=== PATIENT | female | born 1995 | race Hispanic/Latino ===

== ENCOUNTER 2017-01-27 20:01 | Emergency (ER) | payer OTHER ==
[~2017-01-27] VITALS: Ht 144.8 cm; Wt 76.8 kg
[2017-01-27 20:14] VITALS: BP 106/71; PULSE 85; RESP 16; O2SAT 98
--- NOTE | 2017-01-27 21:29 | ED.REPORT ---
HPI-General Illness Date of Service Jan 27, 2017 ED Provider: Dr. Steven Hart MD A 22 year old, 17 week female presents to the ED complaining of right 5th toe pain secondary to an injury that occurred 1830 this evening. Patient reportedly hit her toe on the side of the kitchen counter. She rates her current pain as a 6/10 and the pain is exacerbated by movement. The toe has become increasingly swollen since onset. She is able to bear weight but reports severe pain. The pain does not radiate to her ankle or leg. Patient has not taken any OTC medications for the pain. She denies any head injury, LOC, nausea , vomiting, fever, chills, numbness/tingling in the foot, chest pain, SOB, abdominal pain, constipation or diarrhea. Nursing Notes Stated Complaint: SWOLLEN TOE Chief Complaint: Extremity Trauma Nursing Notes Reviewed: Yes Allergies: Coded Allergies: No Known Allergies (Unverified Allergy, Unknown, 01/27/17) General Time Seen by MD: 21:28 Chief Complaint Other (5th toe pain) Hx Obtained From: Patient Arrived By: Walk-in Sudden in Onset?: Yes Onset Occurred: 1 - 4 hours ago Symptom Duration: Since onset Caused by: Accidental Location: : Foot right Quality: Painful, Sharp Radiation: : Does not radiate Severity: Current: Pain level 7 out of 10 Severity: Maximum: Pain level 7 out of 10 Associated with: Reports: Pain on walking, Denies: Abdominal pain, Chest pain, Dizziness, Fever, Nausea, Numb extremities, Shortness of breath, Vomiting, Weakness Pertinent Negative: Pt denies other symptoms Exacerbated by: Moving affected area Recent Healthcare: No recent doctor visit, No recent hospitalization Past Medical History Past Medical History 17 weeks Past Surgical History None reported Smoking History Unknown if Ever Smoker Social History Other Social History: Good social support, Local resident Ambulatory Status Independent Review of Systems Full Review of Systems Constitutional: Denies: Chills, Fever Respiratory: Denies: Shortness of breath Cardiovascular: Denies: Chest pain GI: Denies: Abdominal pain, Constipation, Diarrhea, Nausea, Vomiting Female: Reports: (17 weeks ) Musculoskeletal: Reports: Joint pain (5th toe pain), Joint swelling (5th toe swelling), Denies: Extremity pain, Extremity swelling Neurologic: Reports: Headache, Denies: Numbness, Weakness Complete sys rev & neg: except as marked. Physical Exam Nursing note and vitals reviewed. Constitutional: Well-developed, well-nourished. Not diaphoretic. Head: Normocephalic and atraumatic. Mouth/Throat: Oropharynx is clear and moist. No oropharyngeal exudate. Eyes: EOM are normal. Pupils are equal, round, and reactive to light. Neck: Supple, no tracheal deviation. Cardiovascular: Normal rate, regular rhythm. Equal and intact distal pulses throughout. Pulmonary/Chest: Effort normal and breath sounds normal. No respiratory distress. Abdominal: Soft. No distension. Musculoskeletal: Range of motion grossly intact, moving all extremities. Tenderness to the small toe. No tenderness over the right knee. No ankle tenderness. No proximal 2nd -5th metatarsal tenderness. No edema appreciated. Neurological: AOx3. Grossly nonfocal exam. Strength and sensation intact and equal to bilateral upper and lower extremities. Skin: Warm and dry, no rashes or pallor appreciated. Psychiatric: Appropriate mood and affect. Behavior appears normal. Vital Signs Vital Signs Date Time Temp Pulse Resp B/P Pulse Ox O2 Delivery O2 Flow Rate FiO2 01/27/17 20:14 36.7 85 16 106/71 98 Room Air Interpretation & Diagnostics X-Ray Interpretation Xray Interpretation: IMPRESSION: No obvious acute evidence of fracture X-Ray Ordered: Foot right Interpretation / Wet Read by: Wet read ED physician Re-Eval/Medical Decision Med Decision/Clinical Course 22-year-old female presenting to the ED for evaluation of right small toe pain. She is currently . Neurovascularly intact. No proximal first and second metatarsal tenderness, no fifth metatarsal tenderness. Discussed performing an x-ray and patient was agreeable to this. X-ray negative for acute fracture. Plan discharge home with careful return precautions, PCP follow -up. Time of Eval: 22:50 Patient Status: Condition improved Re-Evaluation/Progress Note: Patient is re-evaluated. All questions about the treatment plan are addressed. She agrees to follow up with her PCP for further evaluation this week. Patient is agreeable to discharge at this time. Counseled Regarding: Diagnosis, Need for follow-up, When/why to return to ED Discharge & Departure Primary Impression: Toe injury Encounter type: initial encounter Laterality: right Qualified Code: S99.921A - Unspecified injury of right foot, initial encounter Disposition: Home Discharge Condition All VS Reviewed: Yes Condition: Improved Patient Instructions: Foot Contusion (ED) Additional Instructions: Thank you for trusting us with your care this evening. Your emergency department examination and X-ray are reassuring that there is no fracture. Take 1-2 Tylenol every 6 hours as needed for pain. Please schedule a follow up appointment with your primary care physician and OB/ [employer] [facility] in the next week for a recheck. Please return to the emergency department for any new or worsening symptoms including any worsening pain, swelling, redness or any numbness/weakness in the foot. Referrals: NOPCP (PCP) [facility] Scribe Attestation Portions of this note were transcribed by Seven De La Torre. I, Dr. Hart personally performed the history, physical exam and medical decision-making; I reviewed and confirmed the accuracy of the information in the transcribed note. Signed by: Angelique Guy, 01/27/17 [id number]. Steven Hart MD Jan 27, 2017 21:29 SEVEN DE LA TORRE Jan 27, 2017 21:53
--- NOTE | 2017-01-28 11:16 | DRSVH ---
PROCEDURE: X-RAY TOESS, TWO VIEWS INDICATIONS: pain swelling TECHNIQUE: 3 views of the fourth and fifth toe(s) acquired. COMPARISON: None. FINDINGS: Bones: No definite fractures or dislocations. There is subtle cortical lucency at the base of the f ifth proximal phalanx, probably a new vessel. No suspicious bony lesions. Soft tissues: No suspicious soft tissue densities. Soft tissue swelling of the fifth toe. IMPRESSION: No definite fractures or dislocations. If clinical symptoms persist or clinical suspicio n for pathology is high, a repeat examination in 7-10 days is suggested for further evaluation. Dictated by: Francois Gordon M.D. on 01/28/2017 at 11:10 Approved by: Francois Gordon M.D. on 01/28/2017 at 11:14
== END 2017-01-27 23:14 | disposition home or self-care (01) ==
LOC: SED 20:01
DX: O9A.212 Injury, poisoning and certain other consequences of external causes complicating pregnancy, second trimester (principal); S99.921A Unspecified injury of right foot, initial encounter; W22.8XXA Striking against or struck by other objects, initial encounter; Y92.000 Kitchen of unspecified non-institutional (private) residence as the place of occurrence of the external cause; Y93.89 Activity, other specified; Y99.8 Other external cause status; Z3A.17 17 weeks gestation of pregnancy

== ENCOUNTER 2017-02-19 14:24 | Emergency (ER) | payer OTHER ==
[~2017-02-19] VITALS: Ht 144.8 cm; Wt 77.1 kg
[2017-02-19 14:30] VITALS: BP 90/63; PULSE 77; RESP 15; O2SAT 99
[2017-02-19] MEDS ORDERED: LidocaineVisc 2%:Antacid 1:1 10 mL Syringe PO ONE (14:50)
--- NOTE | 2017-02-19 14:58 | ED.REPORT ---
HPI-Chest Pain 40 and Over Date of Service Feb 19, 2017 ED Provider: Akil Conti DO A 22 year old, 21 week female presents to the ED epigastric discomfort/ chest pressure that began at 1300 this afternoon. Her pain began after eating a spicy lunch (pasole) and is associated with mild SOB. She has also noticed similar symptoms in the morning when waking. She endorsees recent flatulence and nausea that was relieved by drinking water. The patient has experienced a similar episode in the past that was not associated with eating. Her discomfort is relieved by sitting. movement has been regular, according to the patient. She denies any recent vomiting, fever, chills, cough or lower extremity edema. She currently takes vitamins. Nursing Notes Stated Complaint: SOB, PRESSURE IN CHEST Chief Complaint: Chest Pain-Non Cardiac Nature Nursing Notes Reviewed: Yes Allergies: Coded Allergies: No Known Allergies (Verified Allergy, Unknown, 02/19/17) Scheduled Ranitidine (Ranitidine) 150 Mg Capsule 150 MG PO HS General Time Seen by MD: 14:36 Chief Complaint Chest pressure Hx Obtained From: Patient Arrived By: Walk-in Sudden in Onset?: No Onset Occurred: 1 - 4 hours ago Symptom Duration: Since onset Location: : Chest left: Chest right: Epigastric Quality: Pressure Radiation: : Does not radiate Migration/Movement: Reports: None Severity: Current: Mild Severity: Maximum: Moderate Associated with: Reports: Nausea, Shortness of Breath, Vomiting, Denies: Cough, non-productive, Fever Pertinent Negative: Pt denies other symptoms Relieved by: Rest Recent Healthcare: No recent doctor visit, No recent hospitalization Risk Factors )( CAD Risk Stratification Risk factors reviewed )( TAD Risk Stratification Risk factors reviewed )( PE Risk Stratification Risk factors reviewed Past Medical History Past Medical History 21 weeks Past Surgical History None reported Smoking History Unknown if Ever Smoker Social History Other Social History: Good social support, Local resident Ambulatory Status Independent Review of Systems + Flatulence Constitutional: Denies: Chills, Fever Respiratory: Reports: Shortness of breath Cardiovascular: Reports: Chest pain GI: Reports: Nausea, Denies: Vomiting Complete sys rev & neg: except as marked. Physical Exam Initial Vital Signs Vital Signs (First) Date Time Temp Pulse Resp B/P Pulse Ox O2 Delivery O2 Flow Rate FiO2 02/19/17 14:30 36.7 77 15 90/63 99 Room Air Initial VS: Reviewed Head / Eyes: Atraumatic, Normocephalic, PERRL Neck: Supple, Non-tender, Full range of motion Extremities: Vascular intact, Neuro intact, No swelling, No tenderness Skin: Warm, Dry, No cyanosis Neurologic: Alert, Oriented, Nonfocal Psychiatric: Mood/affect normal, Behavior normal, Normal thought content General/Constitutional: Awake, Alert, No acute distress, Well appearing, Well developed Appearance / Presentation: Positive: Obese Respiratory / Chest: Atraumatic, Breath sounds NL, Breath sounds = bilat, No respiratory distress Cardiovascular: Heart rate NL, Regular rhythm, Heart sounds NL Abdomen: Atraumatic, Soft Tenderness/Guarding/Rebound: Positive: Tender epigastric (Reproduces discomfort ) ABDOMEN: Gravid uterus Interpretation & Diagnostics Lab Results Interpretation Test 02/19/17 15:31 Hold Urine Received (Received) ECG Interpretation ECG Interpretation: Sinus rhythm Rate 80 Time: 15:21 Interpreted by: ED physician Re-Eval/Medical Decision Med Decision/Clinical Course On exam this patient has epigastric tenderness which resolved after GI cocktail. Her shortness of breath and chest pressure were exacerbated with epigastric palpation and significantly improved after GI cocktail. EKG was reassuring. Her vital signs are reassuring as well. After extensive discussion with her and her fianc, she declines any further diagnostic evaluation. We talked at length about risks and potential disease processes, that may be further elucidated with lab and imaging studies. Again the patient declines. She is very clearly able to make her own decisions and has a mental capacity to do this. She prefers to go home and follow-up with her regular doctor as her symptoms are mild. Ranitidine as prescribed. Return and follow-up precautions given. Time of Eval: 15:31 Patient Status: Condition improved Re-Evaluation/Progress Note: Symptoms have significantly improved after GI cocktail. Shared decision making occurred with the patient. Discussed results and intended plan with patient and her fiance. Discussed potential emergent causes for concern including PE, SD and other acute conditions. Offered lab tests and explained potential need for CT. Patient declines any further evaluation at this time. Currently requesting a prescription for antacid and agrees to follow up with PCP or return for worsening conditions. Time of Eval: 15:40 Re-Evaluation/Progress Note: heart tones - 140 Counseled Regarding: Diagnosis, Need for follow-up, When/why to return to ED Discharge & Departure Primary Impression: Epigastric discomfort Disposition: Home Discharge Condition All VS Reviewed: Yes Condition: Improved Patient Instructions: Acute Nausea and Vomiting (ED), Epigastric Pain (ED), (ED) Additional Instructions: Thank you for trusting us with your care this afternoon. Your emergency department evaluation today including examination and EKG are reassuring that there is no dangerous cause for concern at this time. Your heart tones are regular and reassuring. Please take Ranitidine as directed for discomfort. Please eat small and bland meals to prevent any further discomfort. You decline any further evaluation today so I highly recommend that you schedule a follow-up appointment with your primary care physician and your OB in the morning for a recheck. Please return to the emergency department for any new or worsening conditions including any fevers, chills, nausea, vomiting, worsening abdominal pain, chest pain, shortness or breath, lightheadedness or weakness. Referrals: NOPCP (PCP) Scribe Attestation Portions of this note were transcribed by Seven De La Torre. I, Dr. Akil Lane personally performed the history, physical exam and medical decision- making; I reviewed and confirmed the accuracy of the information in the transcribed note. Akil Conti DO Feb 19, 2017 14:58 SEVEN DE LA TORRE Feb 19, 2017 15:08
--- NOTE | 2017-02-19 15:43 | NUR ---
FHT's via doppler 140's, no decels heard, FM felt
[2017-02-19] MEDS ORDERED: RANI150C4 PO (15:50)
[2017-02-19 16:09] VITALS: BP 146/88; PULSE 77; RESP 15; O2SAT 99
== END 2017-02-19 16:11 | disposition home or self-care (01) ==
LOC: SED 14:24
DX: O99.89 Other specified diseases and conditions complicating pregnancy, childbirth and the puerperium (principal); R10.13 Epigastric pain; R06.02 Shortness of breath; Z3A.21 21 weeks gestation of pregnancy